=== PATIENT | male | born 1955 | race Caucasian/White ===

== ENCOUNTER → 2021-06-09 | Outpatient (CLI) | payer OTHER ==
[~2021-06-09] MED LIST: AMLODIPINE-BEN1 EAC2 PO; SERTRALINE HCL200 MG PO; SIMVASTATIN40 MG PO; TRAZODONE HCL100 MG PO
== END ==
LOC: LAB 09:04
PROVIDERS: ATTEND Student in an Organized Health Care Education/Training Program
DX: Z01.812 Encounter for preprocedural laboratory examination (principal); Z20.822 Contact with and (suspected) exposure to COVID-19

== ENCOUNTER → 2021-06-11 | Outpatient (CLI) | payer OTHER, MEDICARE ==
[~2021-06-11] VITALS: Ht 180.3 cm; Wt 104.3 kg
--- NOTE | 2021-06-15 10:08 | PATH ---
[facility] [place] [address] PATHOLOGY RPT PROCEDURE Name: JOHN SHIELDS Room #: REG DANIEL Holbrook.#: [id number] Admission: 06/11/21 Date of : 51 Discharge: Report #: [id number] Path Case #: [id number] [facility] Accession Number: [id number] . 01 Material submitted: . PART A: colon - TRANSVERSE COLON POLYP. Modifiers: transverse PART B: rectum - RECTAL POLYP . 01 Clinical history: . COLON CANCER SCREENING COLON POLYPS, INTERNAL HEMORRHOIDS . 01 Diagnosis: A. Colonic mucosa "transverse colon polyp biopsy": - Tubular adenoma. - There is no evidence of high grade dysplasia or malignancy. . B. Colonic mucosa "rectal polyp biopsy": - Tubulovillous adenoma without any evidence of hyperplasia or malignancy. (DRE/db; 06/14/2021) LBQ 06/14/2021 1200 Local . 01 Electronically signed: . Gt Trujillo MD, Pathologist NPI- [id number] . 01 Gross description: . A. The specimen is received in formalin, labeled "John Shields, transverse colon polyp". Received are 2 segments of pale [place] tissue measuring 0.1 and 0.3 cm in maximum dimension. The specimen is entirely submitted in cassette A1. . B. The specimen is received in formalin, labeled "[place], John, rectal polyp". Received are multiple segments of red-westbrook tissue ranging in size from 0.2-0.3 cm in maximum dimensions. The specimen is entirely submitted in cassette B1. ([facility]; 06/11/2021) NRI/NRI 06/11/2021 1751 Local . 01 Pathologist provided ICD-10: D12.3, D12.8 . 01 CPT . 506529, 583841 Specimen Comment: A courtesy copy of this report has been sent to [phone], [phone] Specimen Comment: [address] [address] PATHOLOGY RPT PROCEDURE Name: JOHN SHIELDS Room #: REG [facility] Jessica#: [id number] Admission: 06/11/21 Date of : 51 Discharge: Report #: [id number] Path Case #: [id number] Specimen Comment: Report sent to / DR REED Specimen Comment: A duplicate report has been generated due to demographic updates. Performed at: 01 [facility] [place] [address], [place], [place] [id number] MD Gt Trujillo MD Phone: [phone]
--- NOTE | 2021-06-16 10:45 | P ---
[facility] [place] [address] PROCEDURE REPORT Name: MICHELINE SHIELDS Room #: REG DANIEL Yusef.#: [id number] Admission: 06/11/21 Attend Phys: Reji Moore Discharge: Date of : 51 Report #: [id number] THIS REPORT FOR: cc: Richard Otoole MD, Stanley P. MD McElhinney, Christian C. MD ~ cc: Richard Otoole MD DATE OF SERVICE: 06/11/2021 PROCEDURE PERFORMED: Colonoscopy with biopsies. HISTORY OF PRESENT ILLNESS: The patient is a 65-year-old male here for routine screening colonoscopy. Last colonoscopy was greater than 10 years ago. He denies any symptoms, no family history of colon cancer. DESCRIPTION OF PROCEDURE: The risks and benefits of the procedure were explained to the patient, those risks including but not limited to bleeding, perforation and the risk of sedation. He understood these risks and gave informed consent. Sedation was given using propofol per Anesthesia. Next, a digital rectal exam was initially performed, which was normal. Next, using a standard Olympus colonoscope, the scope was placed in the patient's anus and advanced under direct vision to the cecum. The overall prep was good. The cecum and ileocecal valve were normal in appearance. The ascending colon was normal. In the transverse colon, a 3 mm sessile polyp was noted. This was removed with cold forceps, otherwise normal. The descending and sigmoid colon were normal. In the rectum, there was a 5 mm sessile polyp. This was also removed with cold forceps. On retroflexion, small nonbleeding internal hemorrhoids were noted. The scope was then withdrawn and the procedure terminated. The patient tolerated the procedure well. IMPRESSION: 1. Two small colonic polyps. 2. Small internal hemorrhoids. 3. Otherwise, normal colonoscopy. RECOMMENDATIONS: 1. Await biopsy results. 2. If polyps are hyperplastic, repeat in 10 years; if adenomatous polyps, repeat in [address] [address] PROCEDURE REPORT Name: MICHELINE SHIELDS Room #: REG Rachael Lopez#: [id number] Admission: 06/11/21 Attend Phys: Reji Moore Discharge: Date of : 51 Report #: [id number] Thank you for allowing me to participate in his care. <ELECTRONICALLY SIGNED> By: Reji Bates MD 06/16/21 1045 0754 Reji aBtes MD /nt
== END | disposition home or self-care (01) ==
LOC: GI
PROVIDERS: ATTEND Specialist
DX: Z12.11 Encounter for screening for malignant neoplasm of colon (principal); D12.3 Benign neoplasm of transverse colon; D12.8 Benign neoplasm of rectum; K64.8 Other hemorrhoids; I10 Essential (primary) hypertension; E78.00 Pure hypercholesterolemia, unspecified; K21.9 Gastro-esophageal reflux disease without esophagitis; Z98.890 Other specified postprocedural states; Z79.899 Other long term (current) drug therapy; Z87.891 Personal history of nicotine dependence
CPT/HCPCS: 62110; 62900